=== PATIENT | female | born 2000 | race Caucasian/White ===

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

== ENCOUNTER 2018-07-24 12:28 | Emergency (ER) | payer OTHER ==
[2018-07-24 12:51] VITALS: RESP 18
[2018-07-24] MEDS ORDERED: SODIUM CHLORIDE 0.9% 1,000 ML IV ONE ×2 (13:10)
--- NOTE | 2018-07-24 13:11 | ED ---
Abdominal Pain HPI - General Chief Complaint: Abdominal Pain Stated Complaint: 6wks preg, cramping Time Seen by Provider: 07/24/18 12:52 Source: patient, RN notes reviewed, old records reviewed Mode of arrival: ambulatory Limitations: no limitations - History of Present Illness Initial Comments: Patient is a 18-year-old female presents emergency department today with chief complaint of lower abdominal cramping. She reports that she's had no bleeding. She is approximately 6 weeks . This is her fourth . Patient TRANSFER ENGINEER is Dr. Nolasco. Patient states that she's had no vaginal bleeding. She denies any abnormal discharge. She denies any dysuria hematuria. - Related Data Home Medications Medication Instructions Recorded Confirmed Pnv No.95/Ferrous Fum/Folic AC 1 tab PO DAILY 11/16/17 07/24/18 [ Multivitamin Tablet] Allergies Allergy/AdvReac Type Severity Reaction Status Date / Time No Known Allergies Allergy Verified 07/24/18 13:36 Review of Systems ROS Statement: Those systems with pertinent positive or pertinent negative responses have been documented in the HPI. ROS Other: All systems not noted in ROS Statement are negative. Past Medical History Past Medical History: No Reported History History of Any Multi-Drug Resistant Organisms: None Reported Past Surgical History: No Surgical Hx Reported Past Anesthesia/Blood Transfusion Reactions: No Reported Reaction Past Psychological History: Anxiety, Depression Smoking Status: Never smoker Past Alcohol Use History: None Reported Past Drug Use History: None Reported, Marijuana - Past Family History Father Family Medical History: No Reported History General Exam - General Exam Comments Initial Comments: 18-year-old female. Alert and oriented. No significant distress. Limitations: no limitations General appearance: alert, in no apparent distress Head exam: Present: atraumatic, normocephalic, normal inspection Eye exam: Present: normal appearance, PERRL, EOMI. Absent: scleral icterus, conjunctival injection, periorbital swelling ENT exam: Present: normal exam, mucous membranes moist Neck exam: Present: normal inspection. Absent: tenderness, meningismus, lymphadenopathy Respiratory exam: Present: normal lung sounds bilaterally. Absent: respiratory distress, wheezes, rales, rhonchi, stridor Cardiovascular Exam: Present: regular rate, normal rhythm, normal heart sounds. Absent: systolic murmur, diastolic murmur, rubs, gallop, clicks GI/Abdominal exam: Present: soft, normal bowel sounds. Absent: distended, tenderness, guarding, rebound, rigid Extremities exam: Present: normal inspection, full ROM, normal capillary refill. Absent: tenderness, pedal edema, joint swelling, calf tenderness Back exam: Present: normal inspection Neurological exam: Present: alert, oriented X3, CN II-XII intact Psychiatric exam: Present: normal affect, normal mood Skin exam: Present: warm, dry, intact, normal color. Absent: rash Course Vital Signs 07/24/18 07/24/18 07/24/18 12:50 13:02 13:05 Temperature 97.5 F L Pulse Rate 89 81 Respiratory 18 18 18 Rate Blood Pressure 93/62 114/71 114/71 O2 Sat by Pulse 99 90 L 100 Oximetry 07/24/18 07/24/18 07/24/18 13:30 14:00 14:30 Temperature Pulse Rate Respiratory 18 18 18 Rate Blood Pressure 114/71 108/69 100/59 O2 Sat by Pulse 100 99 Oximetry Medical Decision Making - Medical Decision Making This is 18-year-old female. Alert and oriented 3. Patient appears in no acute distress, she presents emergency room stay lower abdominal cramping in early . Patient wishes 6 weeks . ultrasound was IUP. HCG level 17,000. Pelvic exam completed 8 for any acute process. A Rh+ blood type. Patient at this time did have some discharge noted on vaginal exam. She will not wait for the results for Trichomonas or UA test. At this time. Discussed we will call if there is any positive results. Patient has been advised to have close follow-up with primary care physician. But there is no concern for ectopic at this time. Patient agrees to treatment plan will comply. Return parameters were discussed. - Lab Data Result diagrams: 07/24/18 13:37 07/24/18 13:37 Lab Results 07/24/18 07/24/18 07/24/18 Range/Units 13:37 13:37 13:37 WBC 10.1 (4.0-11.0) k/uL RBC 4.85 (3.80-5.40) m/uL Hgb 14.5 (11.4-16.0) gm/dL Hct 43.1 (34.0-46.0) % MCV 88.8 (80.0-100.0) fL MCH 30.0 (25.0-35.0) pg MCHC 33.8 (31.0-37.0) g/dL RDW 12.6 (11.5-15.5) % Plt Count 290 (150-450) k/uL Neutrophils % 68 % Lymphocytes % 24 % Monocytes % 4 % Eosinophils % 2 % Basophils % 1 % Neutrophils # 6.8 (1.3-7.7) k/uL Lymphocytes # 2.4 (1.0-4.8) k/uL Monocytes # 0.4 (0-1.0) k/uL Eosinophils # 0.2 (0-0.7) k/uL Basophils # 0.1 (0-0.2) k/uL Sodium 138 (137-145) mmol/L Potassium 4.0 (3.5-5.1) mmol/L Chloride 102 (98-107) mmol/L Carbon Dioxide 26 (22-30) mmol/L Anion Gap 10 mmol/L BUN 5 L (7-17) mg/dL Creatinine 0.57 (0.52-1.04) mg/dL Est GFR (CKD-EPI)AfAm >90 (>60 ml/min/1.73 sqM) Est GFR (CKD-EPI)NonAf >90 (>60 ml/min/1.73 sqM) Glucose 85 (74-99) mg/dL Calcium 9.2 (8.4-10.2) mg/dL Total Bilirubin 0.5 (0.2-1.3) mg/dL AST 26 (14-36) U/L ALT 30 (9-52) U/L Alkaline Phosphatase 56 (38-126) U/L Total Protein 7.7 (6.3-8.2) g/dL Albumin 4.2 (3.5-5.0) g/dL HCG, Quant 12676.3 mIU/mL Urine Color Urine Appearance (Clear) Urine pH (5.0-8.0) Ur Specific [place] (1.001-1.035) Urine Protein (Negative) Urine Glucose (UA) (Negative) Urine Ketones (Negative) Urine Blood (Negative) Urine Nitrite (Negative) Urine Bilirubin (Negative) Urine Urobilinogen (<2.0) mg/dL Ur Leukocyte Esterase (Negative) Urine RBC (0-5) /hpf Urine WBC (0-5) /hpf Ur Squamous Epith Cells (0-4) /hpf Urine Bacteria (None) /hpf Urine Mucus (None) /hpf Blood Type A Positive Blood Type Recheck No 07/24/18 Range/Units 13:38 WBC (4.0-11.0) k/uL RBC (3.80-5.40) m/uL Hgb (11.4-16.0) gm/dL Hct (34.0-46.0) % MCV (80.0-100.0) fL MCH (25.0-35.0) pg MCHC (31.0-37.0) g/dL RDW (11.5-15.5) % Plt Count (150-450) k/uL Neutrophils % % Lymphocytes % % Monocytes % % Eosinophils % % Basophils % % Neutrophils # (1.3-7.7) k/uL Lymphocytes # (1.0-4.8) k/uL Monocytes # (0-1.0) k/uL Eosinophils # (0-0.7) k/uL Basophils # (0-0.2) k/uL Sodium (137-145) mmol/L Potassium (3.5-5.1) mmol/L Chloride (98-107) mmol/L Carbon Dioxide (22-30) mmol/L Anion Gap mmol/L BUN (7-17) mg/dL Creatinine (0.52-1.04) mg/dL Est GFR (CKD-EPI)AfAm (>60 ml/min/1.73 sqM) Est GFR (CKD-EPI)NonAf (>60 ml/min/1.73 sqM) Glucose (74-99) mg/dL Calcium (8.4-10.2) mg/dL Total Bilirubin (0.2-1.3) mg/dL AST (14-36) U/L ALT (9-52) U/L Alkaline Phosphatase (38-126) U/L Total Protein (6.3-8.2) g/dL Albumin (3.5-5.0) g/dL HCG, Quant mIU/mL Urine Color Light Yellow Urine Appearance Cloudy H (Clear) Urine pH 7.0 (5.0-8.0) Ur Specific [place] 1.008 (1.001-1.035) Urine Protein Negative (Negative) Urine Glucose (UA) Negative (Negative) Urine Ketones Negative (Negative) Urine Blood Negative (Negative) Urine Nitrite Negative (Negative) Urine Bilirubin Negative (Negative) Urine Urobilinogen <2.0 (<2.0) mg/dL Ur Leukocyte Esterase Negative (Negative) Urine RBC <1 (0-5) /hpf Urine WBC 3 (0-5) /hpf Ur Squamous Epith Cells 7 H (0-4) /hpf Urine Bacteria Rare H (None) /hpf Urine Mucus Rare H (None) /hpf Blood Type Blood Type Recheck Disposition Clinical Impression: 6 weeks gestation of , Abdominal cramping affecting Disposition: HOME SELF-CARE Condition: Good Instructions: Abdominal Pain in (ED) Additional Instructions: Patient advised to a close follow-up with primary care physician. Return to emergency department if any alarming signs or symptoms occur. Is patient prescribed a controlled substance at d/c from ED?: No Referrals: Michael Molina MD [Primary Care Provider] - 1-2 days Time of Disposition: 15:23
[2018-07-24 14:09] LABS: Basophils # (A) 0.1 k/uL (0-0.2); Basophils % (A) 1 %; Eosinophils # (A) 0.2 k/uL (0-0.7); Eosinophils % (A) 2 %; HCT 43.1 % (34.0-46.0); HGB 14.5 gm/dL (11.4-16.0); Lymphocytes # (A) 2.4 k/uL (1.0-4.8); Lymphocytes % (A) 24 %; MCHC 33.8 g/dL (31.0-37.0); MCV 88.8 fL (80.0-100.0); Mean Platelet Volume 6.1; Monocytes # (A) 0.4 k/uL (0-1.0); Monocytes % (A) 4 %; Neutrophils # (A) 6.8 k/uL (1.3-7.7); Neutrophils % (A) 68 %; Platelet Count 290 k/uL (150-450); RBC 4.85 m/uL (3.80-5.40); RDW 12.6 % (11.5-15.5); WBC 10.1 k/uL (4.0-11.0)
[2018-07-24 14:16] LABS: ALT 30 U/L (9-52); AST 26 U/L (14-36); Albumin 4.2 g/dL (3.5-5.0); Alkaline Phosphatase 56 U/L (38-126); Anion Gap 10 mmol/L; Blood Urea Nitrogen 5 mg/dL (7-17); Calcium 9.2 mg/dL (8.4-10.2); Carbon Dioxide 26 mmol/L (22-30); Chloride 102 mmol/L (98-107); Glucose 85 mg/dL (74-99); Sodium 138 mmol/L (137-145); Total Bilirubin 0.5 mg/dL (0.2-1.3); Total Protein 7.7 g/dL (6.3-8.2)
--- NOTE | 2018-07-24 15:00 | US ---
EXAMINATION TYPE: Transabdominal DATE OF EXAM: 01/08/18 COMPARISON: NONE CLINICAL HISTORY: pain. cramping x 1 day EXAM PERFORMED: OBTA EXAM MEASUREMENTS: GESTATIONAL AGE / DATING Physician Established: Not yet established Dates by LMP: (6 weeks/1 days) EDC: 03/18/2019 Dates by First Scan: [employer] Dates by Current Scan for: (6 weeks/4 days) EDC: 03/15/2019 MATERNAL ANATOMY Uterus: 9.0 x 7.1 x 5.3cm Right Ovary: 2.5 x 2.5 x 1.6cm Left Ovary: 2.4 x 2.0 x 1.8cm Post CDS / Adnexa: wnl Presence of free fluid: no Presence of corpus luteal cyst: not seen Presence of subchorionic bleed: no GESTATION / SURVEY CRL: 0.7cm (6 weeks/4 days) MSD: wnl Yolk Sac (normal less than 6mm): 0.3 Heart Rate: 119 bpm Rhythm: Normal IUP: Viable IUP Date of LMP: 06/11/2018 Beta HcG (if available): pending Single live intrauterine gestation is identified as gestational sac, yolk sac, pole are present . No free fluid is seen in pelvic cul-de-sac. Both ovaries are seen, no concerning extraovarian adnexal lesion is present. IMPRESSION: Single live intrauterine gestation is documented, mean crown-rump length is 0.7 cm corresponding to 6 week 4 day old fetus.
[2018-07-24 15:01] LABS: HCG,Quantitative Serum 17295.3 mIU/mL
[2018-07-24 15:34] LABS: Appearance,Urine Cloudy (Clear); Bacteria,Urine Rare /hpf; Bilirubin,Urine Negative (Negative); Blood,Urine Negative (Negative); Color,Urine Light Yellow; Glucose,Urine (UA) Negative (Negative); Ketones,Urine Negative (Negative); Leukocyte Esterase,Urine Negative (Negative); Mucus,Urine Rare /hpf; Nitrite,Urine Negative (Negative); Protein,Urine Negative (Negative); RBC,Urine <1 /hpf (0-5); Specific Gravity,Urine 1.008 (1.001-1.035); Squamous Epithelial Cell,Urine 7 /hpf (0-4); Urobilinogen,Urine <2.0 mg/dL (<2.0); WBC,Urine 3 /hpf (0-5)
[2018-07-24 15:50] VITALS: BP 95/60; PULSE 80; TEMP 98.5
== END 2018-07-24 15:40 | disposition home or self-care (01) ==
LOC: EC 12:28
DX: O26.891 Other specified pregnancy related conditions, first trimester (principal); Z3A.01 Less than 8 weeks gestation of pregnancy
CPT/HCPCS: 36415; 76801; 80053; 81001; 84702; 85025; 86900; 86901; 87081; 87491; 87591; 87808; 96360; 96361; 99284

== ENCOUNTER 2018-09-16 13:15 | Emergency (ER) | payer OTHER ==
[2018-09-16 13:50] VITALS: BP 101/65; PULSE 69; RESP 16; TEMP 98.1
[2018-09-16] MEDS ORDERED: SODIUM CHLORIDE 0.9% 1,000 ML IV STA (15:42)
--- NOTE | 2018-09-16 15:48 | ED ---
General Adult HPI - General Chief complaint: Abdominal Pain Stated complaint: sharp pelvic pain, 14 weeks Time Seen by Provider: 09/16/18 15:13 Source: patient, RN notes reviewed Mode of arrival: ambulatory Limitations: no limitations - History of Present Illness Initial comments: 18-year-old female 14 weeks presents to the emergency department for a chief complaint of pelvic cramping. Patient states this has been ongoing for about 2 days. Patient states this is worse when sitting and better when standing. Patient denies any vaginal bleeding. Patient denies dysuria, fevers. She sees Dr. Camp for OB. Patient has no other complaints at this time including shortness of breath, chest pain, abdominal pain, nausea or vomiting, headache, or visual changes. - Related Data Home Medications Medication Instructions Recorded Confirmed Gummies 2 tab PO DAILY 09/16/18 09/16/18 Allergies Allergy/AdvReac Type Severity Reaction Status Date / Time No Known Allergies Allergy Verified 09/16/18 15:52 Review of Systems ROS Statement: Those systems with pertinent positive or pertinent negative responses have been documented in the HPI. ROS Other: All systems not noted in ROS Statement are negative. Past Medical History Past Medical History: No Reported History History of Any Multi-Drug Resistant Organisms: None Reported Past Surgical History: No Surgical Hx Reported Past Anesthesia/Blood Transfusion Reactions: No Reported Reaction Past Psychological History: Anxiety, Depression Smoking Status: Never smoker Past Alcohol Use History: None Reported Past Drug Use History: Marijuana - Past Family History Father Family Medical History: No Reported History General Exam Limitations: no limitations General appearance: alert, in no apparent distress Head exam: Present: atraumatic, normocephalic, normal inspection Eye exam: Present: normal appearance, PERRL, EOMI. Absent: scleral icterus, conjunctival injection, periorbital swelling ENT exam: Present: normal exam, mucous membranes moist Neck exam: Present: normal inspection, full ROM. Absent: tenderness, meningismus, lymphadenopathy Respiratory exam: Present: normal lung sounds bilaterally. Absent: respiratory distress, wheezes, rales, rhonchi, stridor Cardiovascular Exam: Present: regular rate, normal rhythm, normal heart sounds. Absent: systolic murmur, diastolic murmur, rubs, gallop, clicks GI/Abdominal exam: Present: soft, tenderness (The most suprapubic tenderness, no tenderness elsewhere in the abdomen), normal bowel sounds. Absent: distended , guarding, rebound, rigid External exam: Present: normal external exam. Absent: erythema, swelling, lesions, lacerations, ecchymosis Speculum exam: Present: normal speculum exam, vaginal discharge (Thin white discharge noted). Absent: erythema, cervical discharge, vaginal bleeding By manual exam: Present: uterine tenderness. Absent: normal by manual exam, cervical motion tenderness, adnexal tenderness, adnexal mass, uterine enlargement Psychiatric exam: Present: normal affect, normal mood Course Vital Signs 09/16/18 13:46 Temperature 98.1 F Pulse Rate 69 Respiratory 16 Rate Blood Pressure 101/65 O2 Sat by Pulse 98 Oximetry Medical Decision Making - Medical Decision Making 18-year-old female presents to the emergency department for pelvic cramping 2 days, no bleeding. Patient is 14 weeks . CBC and CMP unremarkable. White count slightly elevated at 11 pain 8, likely reactive. CMP unremarkable. HCG Quant 29,252. Urine does not show any evidence of infection, Trichomonas negative. Gonorrhea and chlamydia pending, although patient does not have any concerns for this. ultrasound shows no Getting process seen. Heart rate 162, IUP measuring 15 weeks. Patient again denies vaginal bleeding. At this time she will discharged home with follow-up to [facility] and return if she starts to have any vaginal bleeding. - Lab Data Result diagrams: 09/16/18 16:00 09/16/18 16:00 Lab Results 09/16/18 09/16/18 09/16/18 Range/Units 16:00 16:00 16:00 WBC 11.8 H (4.0-11.0) k/uL RBC 4.21 (3.80-5.40) m/uL Hgb 12.6 (11.4-16.0) gm/dL Hct 36.6 (34.0-46.0) % MCV 86.9 (80.0-100.0) fL MCH 29.8 (25.0-35.0) pg MCHC 34.3 (31.0-37.0) g/dL RDW 13.0 (11.5-15.5) % Plt Count 234 (150-450) k/uL Neutrophils % 66 % Lymphocytes % 27 % Monocytes % 4 % Eosinophils % 2 % Basophils % 0 % Neutrophils # 7.8 H (1.3-7.7) k/uL Lymphocytes # 3.2 (1.0-4.8) k/uL Monocytes # 0.4 (0-1.0) k/uL Eosinophils # 0.2 (0-0.7) k/uL Basophils # 0.0 (0-0.2) k/uL Sodium 137 (137-145) mmol/L Potassium 3.6 (3.5-5.1) mmol/L Chloride 105 (98-107) mmol/L Carbon Dioxide 24 (22-30) mmol/L Anion Gap 8 mmol/L BUN 4 L (7-17) mg/dL Creatinine 0.40 L (0.52-1.04) mg/dL Est GFR (CKD-EPI)AfAm >90 (>60 ml/min/1.73 sqM) Est GFR (CKD-EPI)NonAf >90 (>60 ml/min/1.73 sqM) Glucose 70 L (74-99) mg/dL Calcium 9.1 (8.4-10.2) mg/dL Total Bilirubin 0.3 (0.2-1.3) mg/dL AST 20 (14-36) U/L ALT 20 (9-52) U/L Alkaline Phosphatase 35 L (38-126) U/L Total Protein 7.2 (6.3-8.2) g/dL Albumin 3.9 (3.5-5.0) g/dL Amylase 56 (30-110) U/L Lipase 131 (23-300) U/L HCG, Quant 03025.0 mIU/mL Urine Color Yellow Urine Appearance Clear (Clear) Urine pH 7.0 (5.0-8.0) Ur Specific [place] 1.010 (1.001-1.035) Urine Protein Negative (Negative) Urine Glucose (UA) Negative (Negative) Urine Ketones Negative (Negative) Urine Blood Negative (Negative) Urine Nitrite Negative (Negative) Urine Bilirubin Negative (Negative) Urine Urobilinogen <2.0 (<2.0) mg/dL Ur Leukocyte Esterase Negative (Negative) Trichomonas Ag (Rapid) (Negative) 09/16/18 Range/Units 16:00 WBC (4.0-11.0) k/uL RBC (3.80-5.40) m/uL Hgb (11.4-16.0) gm/dL Hct (34.0-46.0) % MCV (80.0-100.0) fL MCH (25.0-35.0) pg MCHC (31.0-37.0) g/dL RDW (11.5-15.5) % Plt Count (150-450) k/uL Neutrophils % % Lymphocytes % % Monocytes % % Eosinophils % % Basophils % % Neutrophils # (1.3-7.7) k/uL Lymphocytes # (1.0-4.8) k/uL Monocytes # (0-1.0) k/uL Eosinophils # (0-0.7) k/uL Basophils # (0-0.2) k/uL Sodium (137-145) mmol/L Potassium (3.5-5.1) mmol/L Chloride (98-107) mmol/L Carbon Dioxide (22-30) mmol/L Anion Gap mmol/L BUN (7-17) mg/dL Creatinine (0.52-1.04) mg/dL Est GFR (CKD-EPI)AfAm (>60 ml/min/1.73 sqM) Est GFR (CKD-EPI)NonAf (>60 ml/min/1.73 sqM) Glucose (74-99) mg/dL Calcium (8.4-10.2) mg/dL Total Bilirubin (0.2-1.3) mg/dL AST (14-36) U/L ALT (9-52) U/L Alkaline Phosphatase (38-126) U/L Total Protein (6.3-8.2) g/dL Albumin (3.5-5.0) g/dL Amylase (30-110) U/L Lipase (23-300) U/L HCG, Quant mIU/mL Urine Color Urine Appearance (Clear) Urine pH (5.0-8.0) Ur Specific [place] (1.001-1.035) Urine Protein (Negative) Urine Glucose (UA) (Negative) Urine Ketones (Negative) Urine Blood (Negative) Urine Nitrite (Negative) Urine Bilirubin (Negative) Urine Urobilinogen (<2.0) mg/dL Ur Leukocyte Esterase (Negative) Trichomonas Ag (Rapid) Negative (Negative) Disposition Clinical Impression: Pelvic cramping, Intrauterine Disposition: HOME SELF-CARE Condition: Good Instructions: Abdominal Pain in (ED) Additional Instructions: Please follow up with [facility] in one to 2 days. Return to the emergency department if you have worsening symptoms. Is patient prescribed a controlled substance at d/c from ED?: No Referrals: Michael Molina MD [Primary Care Provider] - 1-2 days Terrence Moore MD [Family Provider] - 1-2 days Time of Disposition: 17:58
[2018-09-16 16:23] LABS: Appearance,Urine Clear (Clear); Basophils % (A) 0 %; Bilirubin,Urine Negative (Negative); Blood,Urine Negative (Negative); Color,Urine Yellow; Eosinophils # (A) 0.2 k/uL (0-0.7); Eosinophils % (A) 2 %; Glucose,Urine (UA) Negative (Negative); HCT 36.6 % (34.0-46.0); HGB 12.6 gm/dL (11.4-16.0); Ketones,Urine Negative (Negative); Leukocyte Esterase,Urine Negative (Negative); Lymphocytes # (A) 3.2 k/uL (1.0-4.8); Lymphocytes % (A) 27 %; MCH 29.8 pg (25.0-35.0); MCHC 34.3 g/dL (31.0-37.0); MCV 86.9 fL (80.0-100.0); Mean Platelet Volume 6.4; Monocytes # (A) 0.4 k/uL (0-1.0); Monocytes % (A) 4 %; Neutrophils # (A) 7.8 k/uL (1.3-7.7); Neutrophils % (A) 66 %; Nitrite,Urine Negative (Negative); Platelet Count 234 k/uL (150-450); Protein,Urine Negative (Negative); RBC 4.21 m/uL (3.80-5.40); Urobilinogen,Urine <2.0 mg/dL (<2.0); WBC 11.8 k/uL (4.0-11.0)
[2018-09-16 16:34] LABS: ALT 20 U/L (9-52); AST 20 U/L (14-36); Albumin 3.9 g/dL (3.5-5.0); Alkaline Phosphatase 35 U/L (38-126); Amylase 56 U/L (30-110); Anion Gap 8 mmol/L; Blood Urea Nitrogen 4 mg/dL (7-17); Calcium 9.1 mg/dL (8.4-10.2); Carbon Dioxide 24 mmol/L (22-30); Chloride 105 mmol/L (98-107); Glucose 70 mg/dL (74-99); Lipase 131 U/L (23-300); Potassium 3.6 mmol/L (3.5-5.1); Sodium 137 mmol/L (137-145); Total Bilirubin 0.3 mg/dL (0.2-1.3); Total Protein 7.2 g/dL (6.3-8.2)
--- NOTE | 2018-09-16 17:09 | US ---
EXAMINATION TYPE: US OB >= 14 wk fetus DATE OF EXAM: 09/16/2018 COMPARISON: CLINICAL HISTORY: PainCramping, no spotting, no surgeries TECHNIQUE: Transabdominal (TA) GESTATIONAL AGE / DATING Physician Established: (13 weeks/6 days) EDC: 03/18/2019 Dates by Current Scan: (15 weeks/2 days) EDC: 03/08/2019 SURVEY IUP: Single PLACENTA: Anterior PREVIA: No Previa ANNY: 10.6 cm Normal CERVICAL LENGTH (transabdominal: norm > 3.0cm): 3.8 cm BIOMETRY PRESENTATION: Transverse lie with head to maternal left BPD: 3.0 cm 15 weeks / 3 days HC: 10.8 cm 15 weeks / 1 days AC: 9.1 cm 15 weeks / 2 days FL: 1.3 cm 13 weeks / 6 days ESTIMATED WEIGHT IN GRAMS: 103.0 grams ESTIMATED WEIGHT IN LBS/OZ: 0 lbs. 4 oz. WEIGHT PERCENTAGE BASED ON ESTABLISHED DATES: 87.4% HC/AC: 1.2 Normal FL/AC: 14.5 HEART RATE: 162 bpm RHYTHM: Normal Single live IUP measuring 15 weeks 2 days IMPRESSION: no complicating process seen. There is satisfactory growth compared to 07/24/2018.
[2018-09-18 14:03] LABS: C. trachomatis,PCR Negative (Neg,Equiv); Chlamydia trachomatis Source Vagina
[2018-09-18 14:10] LABS: N. gonorrhoeae,PCR Negative (Neg,Equiv); Neisseria Source Vagina
== END 2018-09-16 18:15 | disposition home or self-care (01) ==
LOC: EC 13:15
DX: O99.89 Other specified diseases and conditions complicating pregnancy, childbirth and the puerperium (principal); R10.2 Pelvic and perineal pain; Z3A.14 14 weeks gestation of pregnancy
CPT/HCPCS: 36415; 76805; 80053; 81003; 82150; 83690; 84702; 85025; 87491; 87591; 87808; 96360; 99284

== ENCOUNTER 2018-09-30 20:24 | Emergency (ER) | payer OTHER ==
[2018-09-30] MEDS ORDERED: SODIUM CHLORIDE 0.9% 500 ML 500 ML IV ONE (21:31)
[2018-09-30 21:53] VITALS: RESP 16
[2018-09-30 22:22] LABS: Basophils % (A) 0 %; Eosinophils # (A) 0.2 k/uL (0-0.7); Eosinophils % (A) 2 %; HCT 36.4 % (34.0-46.0); HGB 12.2 gm/dL (11.4-16.0); Lymphocytes # (A) 3.3 k/uL (1.0-4.8); Lymphocytes % (A) 27 %; MCH 29.2 pg (25.0-35.0); MCHC 33.5 g/dL (31.0-37.0); MCV 87.1 fL (80.0-100.0); Mean Platelet Volume 6.2; Monocytes # (A) 0.5 k/uL (0-1.0); Monocytes % (A) 4 %; Neutrophils # (A) 7.9 k/uL (1.3-7.7); Neutrophils % (A) 65 %; Platelet Count 266 k/uL (150-450); RBC 4.17 m/uL (3.80-5.40); RDW 12.7 % (11.5-15.5); WBC 12.1 k/uL (4.0-11.0)
[2018-09-30 22:27] LABS: Amorphous Sediment,Urine Occasional /hpf; Appearance,Urine Cloudy (Clear); Bilirubin,Urine Negative (Negative); Blood,Urine Negative (Negative); Color,Urine Yellow; Glucose,Urine (UA) Negative (Negative); Ketones,Urine 1+ (Negative); Leukocyte Esterase,Urine Small (Negative); Mucus,Urine Few /hpf; Nitrite,Urine Negative (Negative); PH, Urine 6.5 (5.0-8.0); Protein,Urine Negative (Negative); RBC,Urine 2 /hpf (0-5); Specific Gravity,Urine 1.015 (1.001-1.035); Squamous Epithelial Cell,Urine 31 /hpf (0-4); Urobilinogen,Urine <2.0 mg/dL (<2.0); WBC,Urine 12 /hpf (0-5)
[2018-09-30 22:29] LABS: ALT 25 U/L (9-52); AST 26 U/L (14-36); Albumin 3.9 g/dL (3.5-5.0); Alkaline Phosphatase 40 U/L (38-126); Anion Gap 9 mmol/L; Blood Urea Nitrogen 10 mg/dL (7-17); Calcium 9.3 mg/dL (8.4-10.2); Carbon Dioxide 23 mmol/L (22-30); Chloride 105 mmol/L (98-107); Glucose 78 mg/dL (74-99); Sodium 137 mmol/L (137-145); Total Bilirubin 0.3 mg/dL (0.2-1.3); Total Protein 7.2 g/dL (6.3-8.2)
[2018-09-30 22:46] LABS: HCG,Quantitative Serum 14342.4 mIU/mL
--- NOTE | 2018-09-30 22:49 | US ---
EXAMINATION TYPE: US OB >= 14 wk fetus DATE OF EXAM: 09/30/2018 COMPARISON: US CLINICAL HISTORY: painbleeding and cramping TECHNIQUE: Transabdominal (TA) GESTATIONAL AGE / DATING Physician Established: (15 weeks/6 days) EDC: 03/18/2019 Dates by LMP: (15 weeks/6 days) EDC: 03/18/2019 Dates by First Scan: (16 weeks/3 days) EDC: 03/15/2019 Dates by Current Scan: (16 weeks/6 days) EDC: 03/11/2019 Beta HCG (if available): SURVEY IUP: Single PLACENTA: Anterior PREVIA: No Previa ANNY: 11.8 cm Normal CERVICAL LENGTH (transabdominal: norm > 3.0cm): 3.6 cm BIOMETRY PRESENTATION: Breech BPD: 3.6 cm 17 weeks / 0 days HC: 13.5 cm 17 weeks / 0 days AC: 11.3 cm 17 weeks / 1 days FL: 2.1 cm 16 weeks / 2 days ESTIMATED WEIGHT IN GRAMS: 168 grams ESTIMATED WEIGHT IN LBS/OZ: 0 lbs. 6 oz. WEIGHT PERCENTAGE BASED ON ESTABLISHED DATES: 93% HC/AC: 1.2 Normal FL/AC: 18.7 Normal HEART RATE: 165 bpm RHYTHM: Normal Growth according to dates, no abnormality noted. IMPRESSION: The ultrasound gestational age is 16 weeks and 6 days. No complicating process seen. There is satisfa ctory growth compared to 07/24/2018.
--- NOTE | 2018-09-30 23:36 | ED ---
General Adult HPI - General Source: patient, RN notes reviewed Mode of arrival: ambulatory Limitations: no limitations <Wilbur Vera - Last Filed: 10/01/18 03:55> <Addie Garcia P - Last Filed: 10/02/18 04:05> - General Chief complaint: Abdominal Pain Stated complaint: 16 wks Bleeding/cramping Time Seen by Provider: 09/30/18 20:36 - History of Present Illness Initial comments: 18 year old presents to the emergency department for vaginal bleeding and cramping. Patient states cramping started yesterday. She states bleeding started about 3 hours prior to arrival. Patient states this bleeding is spotting in nature. Patient states she has had a confirmed intrauterine . She follows with Dr. Camp. She recently saw Dr. Camp who stated that cramping could be due to round ligament pain. Patient denies any dysuria. She denies any bowel movements.Patient has no other complaints at this time including shortness of breath, chest pain, nausea or vomiting, headache, or visual changes. (Wilbur Vera) - Related Data Home Medications Medication Instructions Recorded Confirmed Gummies 2 tab PO DAILY 09/16/18 09/16/18 Allergies Allergy/AdvReac Type Severity Reaction Status Date / Time No Known Allergies Allergy Verified 09/30/18 20:32 Review of Systems ROS Other: All systems not noted in ROS Statement are negative. <Wilbur Vera - Last Filed: 10/01/18 03:55> ROS Other: All systems not noted in ROS Statement are negative. <Addie Garcia P - Last Filed: 10/02/18 04:05> ROS Statement: Those systems with pertinent positive or pertinent negative responses have been documented in the HPI. Past Medical History Past Medical History: No Reported History History of Any Multi-Drug Resistant Organisms: None Reported Past Surgical History: No Surgical Hx Reported Past Anesthesia/Blood Transfusion Reactions: No Reported Reaction Past Psychological History: Anxiety, Depression Smoking Status: Never smoker Past Alcohol Use History: None Reported Past Drug Use History: Marijuana - Past Family History Father Family Medical History: No Reported History <Wilbur Vera - Last Filed: 10/01/18 03:55> General Exam Limitations: no limitations General appearance: alert, in no apparent distress Head exam: Present: atraumatic, normocephalic, normal inspection Eye exam: Present: normal appearance, PERRL, EOMI. Absent: scleral icterus, conjunctival injection, periorbital swelling ENT exam: Present: normal exam, mucous membranes moist Neck exam: Present: normal inspection, full ROM. Absent: tenderness, meningismus, lymphadenopathy, thyromegaly Respiratory exam: Present: normal lung sounds bilaterally. Absent: respiratory distress, wheezes, rales, rhonchi, stridor Cardiovascular Exam: Present: regular rate, normal rhythm, normal heart sounds. Absent: systolic murmur, diastolic murmur, rubs, gallop, clicks GI/Abdominal exam: Present: soft, normal bowel sounds. Absent: distended, tenderness, guarding, rebound, rigid External exam: Present: normal external exam Speculum exam: Present: normal speculum exam. Absent: erythema, vaginal discharge, cervical discharge, vaginal bleeding (no vaginal bleeding noted), foreign body, tissue, laceration By manual exam: Present: adnexal tenderness (minimal left adnexal tenderness). Absent: cervical motion tenderness, adnexal mass, uterine enlargement, uterine tenderness Neurological exam: Present: alert, oriented X3, CN II-XII intact Psychiatric exam: Present: normal affect, normal mood <Wilbur Vera P - Last Filed: 10/01/18 03:55> Vital Signs 09/30/18 09/30/18 09/30/18 20:30 21:52 22:59 Temperature 98.2 F Pulse Rate 90 Respiratory 20 16 16 Rate Blood Pressure 105/59 O2 Sat by Pulse 98 Oximetry 09/30/18 23:37 Temperature 98.3 F Pulse Rate 82 Respiratory 16 Rate Blood Pressure 110/52 O2 Sat by Pulse 99 Oximetry Medical Decision Making - Lab Data Result diagrams: 09/30/18 21:45 09/30/18 21:45 <Wilbur Vera P - Last Filed: 10/01/18 03:55> - Lab Data Result diagrams: 09/30/18 21:45 09/30/18 21:45 <Addie Garcia P - Last Filed: 10/02/18 04:05> - Medical Decision Making 18-year-old female presents to the emergency department for a chief complaint of vaginal bleeding and cramping. Patient is a female that is currently 16 weeks . Bleeding has been ongoing for the past few hours. On exam no significant tenderness. Speculum exam reveals minimal left adnexal tenderness without any vaginal bleeding or significant discharge. About 15 days ago patient had a negative gonorrhea and chlamydia. CBC unremarkable, white blood cell count 12.1 likely reactive. Urine has many squamous epithelial cells, will be cultured. No dysuria at this time. A+ blood type noted, no need for RhoGAM. Ultrasound shows a gestational age of 16 weeks 6 days without any complicating process. Satisfactory growth compared to last exam. Heart rate 165. At this time patient will be diagnosed with threatened miscarriage. Patient will follow up with [facility]. She will return if she has any worsening symptoms. (Wilbur Vera) I was available for consultation in the emergency department. The history and physical exam were done by the midlevel provider. I was consulted for this patient's care. I reviewed the case with the midlevel provider and based on their presentation of the patient, I agree with the assessment, medical decision making and plan of care as documented. (Addie Garcia) - Lab Data Lab Results 09/30/18 09/30/18 09/30/18 Range/Units 21:45 21:45 21:45 WBC 12.1 H (4.0-11.0) k/uL RBC 4.17 (3.80-5.40) m/uL Hgb 12.2 (11.4-16.0) gm/dL Hct 36.4 (34.0-46.0) % MCV 87.1 (80.0-100.0) fL MCH 29.2 (25.0-35.0) pg MCHC 33.5 (31.0-37.0) g/dL RDW 12.7 (11.5-15.5) % Plt Count 266 (150-450) k/uL Neutrophils % 65 % Lymphocytes % 27 % Monocytes % 4 % Eosinophils % 2 % Basophils % 0 % Neutrophils # 7.9 H (1.3-7.7) k/uL Lymphocytes # 3.3 (1.0-4.8) k/uL Monocytes # 0.5 (0-1.0) k/uL Eosinophils # 0.2 (0-0.7) k/uL Basophils # 0.0 (0-0.2) k/uL Sodium 137 (137-145) mmol/L Potassium 4.0 (3.5-5.1) mmol/L Chloride 105 (98-107) mmol/L Carbon Dioxide 23 (22-30) mmol/L Anion Gap 9 mmol/L BUN 10 (7-17) mg/dL Creatinine 0.41 L (0.52-1.04) mg/dL Est GFR (CKD-EPI)AfAm >90 (>60 ml/min/1.73 sqM) Est GFR (CKD-EPI)NonAf >90 (>60 ml/min/1.73 sqM) Glucose 78 (74-99) mg/dL Calcium 9.3 (8.4-10.2) mg/dL Total Bilirubin 0.3 (0.2-1.3) mg/dL AST 26 (14-36) U/L ALT 25 (9-52) U/L Alkaline Phosphatase 40 (38-126) U/L Total Protein 7.2 (6.3-8.2) g/dL Albumin 3.9 (3.5-5.0) g/dL HCG, Quant 00454.4 mIU/mL Urine Color Urine Appearance (Clear) Urine pH (5.0-8.0) Ur Specific [place] (1.001-1.035) Urine Protein (Negative) Urine Glucose (UA) (Negative) Urine Ketones (Negative) Urine Blood (Negative) Urine Nitrite (Negative) Urine Bilirubin (Negative) Urine Urobilinogen (<2.0) mg/dL Ur Leukocyte Esterase (Negative) Urine RBC (0-5) /hpf Urine WBC (0-5) /hpf Ur Squamous Epith Cells (0-4) /hpf Amorphous Sediment (None) /hpf Urine Mucus (None) /hpf Blood Type A Positive Blood Type Recheck No 09/30/18 Range/Units 21:45 WBC (4.0-11.0) k/uL RBC (3.80-5.40) m/uL Hgb (11.4-16.0) gm/dL Hct (34.0-46.0) % MCV (80.0-100.0) fL MCH (25.0-35.0) pg MCHC (31.0-37.0) g/dL RDW (11.5-15.5) % Plt Count (150-450) k/uL Neutrophils % % Lymphocytes % % Monocytes % % Eosinophils % % Basophils % % Neutrophils # (1.3-7.7) k/uL Lymphocytes # (1.0-4.8) k/uL Monocytes # (0-1.0) k/uL Eosinophils # (0-0.7) k/uL Basophils # (0-0.2) k/uL Sodium (137-145) mmol/L Potassium (3.5-5.1) mmol/L Chloride (98-107) mmol/L Carbon Dioxide (22-30) mmol/L Anion Gap mmol/L BUN (7-17) mg/dL Creatinine (0.52-1.04) mg/dL Est GFR (CKD-EPI)AfAm (>60 ml/min/1.73 sqM) Est GFR (CKD-EPI)NonAf (>60 ml/min/1.73 sqM) Glucose (74-99) mg/dL Calcium (8.4-10.2) mg/dL Total Bilirubin (0.2-1.3) mg/dL AST (14-36) U/L ALT (9-52) U/L Alkaline Phosphatase (38-126) U/L Total Protein (6.3-8.2) g/dL Albumin (3.5-5.0) g/dL HCG, Quant mIU/mL Urine Color Yellow Urine Appearance Cloudy H (Clear) Urine pH 6.5 (5.0-8.0) Ur Specific [place] 1.015 (1.001-1.035) Urine Protein Negative (Negative) Urine Glucose (UA) Negative (Negative) Urine Ketones 1+ H (Negative) Urine Blood Negative (Negative) Urine Nitrite Negative (Negative) Urine Bilirubin Negative (Negative) Urine Urobilinogen <2.0 (<2.0) mg/dL Ur Leukocyte Esterase Small H (Negative) Urine RBC 2 (0-5) /hpf Urine WBC 12 H (0-5) /hpf Ur Squamous Epith Cells 31 H (0-4) /hpf Amorphous Sediment Occasional H (None) /hpf Urine Mucus Few H (None) /hpf Blood Type Blood Type Recheck Disposition Is patient prescribed a controlled substance at d/c from ED?: No Time of Disposition: 23:34 <Wilbur Vera P - Last Filed: 12/25/18 03:55> <Addie Garcia P - Last Filed: 10/02/18 04:05> Clinical Impression: Threatened miscarriage, Vaginal bleeding during Disposition: HOME SELF-CARE Condition: Good Instructions: Threatened Miscarriage (ED) Additional Instructions: Please follow up with [facility] in 1-2 days. Please return to the emergency department if you have any worsening symptoms. Referrals: Michael Molina MD [Primary Care Provider] - 1-2 days Terrence Moore MD [STAFF PHYSICIAN] - 1-2 days
[2018-09-30 23:38] VITALS: BP 110/52; PULSE 82; TEMP 98.3
[2018-10-03 13:44] LABS: C. trachomatis,PCR Negative (Neg,Equiv); Chlamydia trachomatis Source Urine
== END 2018-09-30 23:40 | disposition home or self-care (01) ==
LOC: EC 20:24
DX: O20.0 Threatened abortion (principal); Z3A.16 16 weeks gestation of pregnancy
CPT/HCPCS: 36415; 76805; 80053; 81001; 84702; 85025; 86900; 86901; 87086; 87491; 96360; 99284

== ENCOUNTER 2019-01-06 17:58 | Outpatient (CLI) | payer OTHER ==
[2019-01-06 18:46] VITALS: BP 124/66; PULSE 85; RESP 16; TEMP 98.4
[2019-01-06 19:09] LABS: Amorphous Sediment,Urine Occasional /hpf; Appearance,Urine Cloudy (Clear); Bilirubin,Urine Negative (Negative); Blood,Urine Negative (Negative); Color,Urine Yellow; Glucose,Urine (UA) Negative (Negative); Ketones,Urine Negative (Negative); Leukocyte Esterase,Urine Negative (Negative); Mucus,Urine Occasional /hpf; Nitrite,Urine Negative (Negative); PH, Urine 6.5 (5.0-8.0); Protein,Urine Negative (Negative); Specific Gravity,Urine 1.019 (1.001-1.035); Squamous Epithelial Cell,Urine 5 /hpf (0-4); Urobilinogen,Urine <2.0 mg/dL (<2.0); WBC,Urine 1 /hpf (0-5)
[2019-01-06] MEDS ORDERED: BETAMET ACET-BETAMETH SOD PHOS 6 MG/ML VIAL IM SCH (20:15)
[2019-01-06] MEDS ORDERED: LACTATED RINGERS 1,000 ML IV SCH (20:30)
--- NOTE | 2019-02-03 09:15 | P.MSEPDOC ---
Presenting Problems - Arrival Data Date of Arrival on Unit: 01/06/19 Time of Arrival on Unit: 17:58 Mode of Transport: Ambulatory - Complaint OB-Reason for Admission/Chief Complaint: Possible Onset of Labor Medical History - Information : 2 Para: 1 Term: 1 : 0 Abortions: Spontaneous or Elective: 0 Number of Living Children: 1 - Gestational Age Gestational Age by TREY (wks/days): 30 Weeks and 3 Days Review of Systems - Review of Systems Constitutional: No problems Breast: No problems ENT: No problems Cardiovascular: No problems Respiratory: No problems Gastrointestinal: No problems Genitourinary: No problems Musculoskeletal: No problems Neurological: No problems Skin: No problems Comment: hx of labor with last preg but delivered at 38 weeks gestation Vital Signs - Temperature Temperature: 98.4 F Temperature Source: Temporal Artery Scan - Pulse Right Radial Pulse Rate: 85 Pulse Assessment Method: Automatic Cuff - Respirations Respiratory Rate: 16 Oxygen Delivery Method: Room Air O2 Sat by Pulse Oximetry: 98 - Blood Pressure Right Arm Blood Pressure: 124/66 Blood Pressure Mean: 85 Blood Pressure Source: Automatic Cuff Medical Screen Scoring (Pre) - Cervical Exam Dilation: 0 cm = 0 Effacement: Exam Deferred Membranes: Intact - Uterine Contractions Frequency: < 36 weeks = 6 Duration: N/A Intensity: N/A - Maternal Vital Signs Maternal Temperature: N/A Maternal Blood Pressure: N/A Signs of Preeclampsia: N/A Maternal Respirations: N/A - Pain Assessment Pain Location and Character: Lower, Abdomen Pain Scale Used: Numeric (1 - 10) Pain Intensity: 8 Pain Description: Cramping Pain Frequency: Intermittent Pain Duration: 30 Pain Duration Units: Minutes Pain Behavior: Vocalization Pain Aggravating Factors: Activity, Walking - Maternal Trauma Maternal Trauma: N/A - Assessment Baseline FHR: 140 Heart Rate - NICHD Category: Category I (Normal) = 0 NST: Reactive Position: N/A Station: N/A - Total Score Total Score (Pre): 6 - Level of Risk Level of Risk: Medium (6-9) Physician Notification (Pre) - Physician Notified Physician Notified Date: 01/06/19 Physician Notified Time: 19:00 Physician/Practitioner Notifed:: nicholas Spoke With: nicholas New Order Received: Yes Medical Screen Scoring (Post) - Cervical Exam Membranes: Intact - Uterine Contractions Frequency: > 5 minutes apart = 1 Duration: > 40 seconds = 2 - Maternal Vital Signs Maternal Temperature: N/A Maternal Blood Pressure: N/A Signs of Preeclampsia: N/A Maternal Respirations: N/A - Assessment Heart Rate: 135 Heart Rate - NICHD Category: Category I (Normal) = 0 NST: Reactive - Total Score Total Score (Post): 3 - Post Treatment Level of Risk Post Treatment Level of Risk: Low (0-5) Physician Notification (Post) - Physician Notified Physician Notified Date: 01/06/19 Physician Notified Time: 21:10 Physician/Practitioner Notified:: Dr Gordon New Order Received: Yes - Notification Comment Comment: d/c home follow-up with Dr Moore within a week Disposition - Disposition OB Disposition: Physician follow up in office, Discharge to home, Written follow up instructions reviewed Discharge Date: 01/06/19 Discharge Time: 21:25 I agree with the RN Medical Screening Exam: Yes Risk & Benefit of care provided described in d/c instruction: Yes Diagnosis: FALSE LABOR BEFORE 37 COMPLETED WEEKS OF GEST, THIRD TRI
== END 2019-01-06 21:25 | disposition home or self-care (01) ==
LOC: FBPOP 17:58
PROVIDERS: ATTEND Obstetrics & Gynecology
DX: O47.03 False labor before 37 completed weeks of gestation, third trimester (principal); Z3A.30 30 weeks gestation of pregnancy
CPT/HCPCS: 59025; 96360; 96372; 82731; 81001; G0463; J0702; 99214

== ENCOUNTER 2019-01-07 19:53 | Outpatient (CLI) | payer OTHER ==
[2019-01-07] MEDS ORDERED: BETAMET ACET-BETAMETH SOD PHOS 6 MG/ML VIAL IM SCH (20:15)
[2019-01-07 20:29] VITALS: BP 108/69; PULSE 96; RESP 16; TEMP 97.3
--- NOTE | 2019-01-28 09:37 | P.MSEPDOC ---
Presenting Problems - Arrival Data Date of Arrival on Unit: 01/07/19 Time of Arrival on Unit: 19:53 Mode of Transport: Ambulatory - Complaint OB-Reason for Admission/Chief Complaint: Other Comment: second celestone injection Medical History - Information : 2 Para: 1 Term: 1 : 0 Abortions: Spontaneous or Elective: 0 Number of Living Children: 1 - Gestational Age Gestational Age by TREY (wks/days): 30 Weeks and 4 Days Review of Systems - Review of Systems Constitutional: No problems Breast: No problems ENT: No problems Cardiovascular: No problems Respiratory: No problems Gastrointestinal: No problems Genitourinary: No problems Musculoskeletal: No problems Neurological: No problems Skin: No problems Vital Signs - Temperature Temperature: 97.3 F Temperature Source: Temporal Artery Scan - Pulse Right Sitting Pulse Rate: 96 Pulse Assessment Method: Automatic Cuff - Respirations Respiratory Rate: 16 Oxygen Delivery Method: Room Air - Blood Pressure Right Arm Blood Pressure: 108/69 Blood Pressure Mean: 82 Blood Pressure Source: Automatic Cuff Medical Screen Scoring (Pre) - Pain Assessment Pain Scale Used: Numeric (1 - 10) Pain Intensity: 0 - Level of Risk Level of Risk: N/A Physician Notification (Pre) - Physician Notified Physician Notified Date: 01/07/19 Physician Notified Time: 20:00 Physician/Practitioner Notifed:: David New Order Received: Yes (D/C home) - Notification Comment Comment: pt not on monitor, no complaints of contractions or any other complaints, positive movement Disposition - Disposition OB Disposition: Discharge to home Discharge Date: 01/07/19 Discharge Time: 20:14 I agree with the RN Medical Screening Exam: No Physician's MSE Comment: Incomplete documentation Risk & Benefit of care provided described in d/c instruction: No Diagnosis: OTHER SPECIFIED COMPLICATIONS OF LABOR AND DELIVERY
== END 2019-01-07 20:14 | disposition home or self-care (01) ==
LOC: FBPOP 19:53
PROVIDERS: ATTEND Obstetrics & Gynecology
DX: O75.89 Other specified complications of labor and delivery (principal); Z3A.30 30 weeks gestation of pregnancy
CPT/HCPCS: 96372; G0463; J0702; 99213

== ENCOUNTER 2019-01-16 13:11 | Outpatient (CLI) | payer OTHER ==
[2019-01-16 14:03] VITALS: BP 124/81; PULSE 96; RESP 16; TEMP 98.3
--- NOTE | 2019-01-31 09:53 | P.MSEPDOC ---
Presenting Problems - Arrival Data Date of Arrival on Unit: 01/16/19 Time of Arrival on Unit: 13:45 Mode of Transport: Ambulatory - Complaint OB-Reason for Admission/Chief Complaint: Possible Onset of Labor Comment: lost pinkish mucus plug Medical History - Information : 2 Para: 1 Term: 1 : 0 Abortions: Spontaneous or Elective: 0 Number of Living Children: 1 - Gestational Age Gestational Age by TREY (wks/days): 31 Weeks and 6 Days Review of Systems - Review of Systems Constitutional: No problems Breast: No problems ENT: No problems Cardiovascular: No problems Respiratory: No problems Gastrointestinal: No problems Genitourinary: No problems Musculoskeletal: No problems Neurological: No problems Skin: No problems Vital Signs - Temperature Temperature: 98.3 F Temperature Source: Temporal Artery Scan - Pulse Right Radial Pulse Rate: 96 Pulse Assessment Method: Automatic Cuff - Respirations Respiratory Rate: 16 Oxygen Delivery Method: Room Air - Blood Pressure Right Arm Blood Pressure: 124/81 Blood Pressure Mean: 95 Medical Screen Scoring (Pre) - Uterine Contractions Frequency: N/A Duration: N/A Intensity: N/A - Maternal Vital Signs Maternal Temperature: N/A Maternal Blood Pressure: N/A Signs of Preeclampsia: N/A Maternal Respirations: N/A - Pain Assessment Pain Location and Character: Back Pain Scale Used: Numeric (1 - 10) Pain Intensity: 3 Pain Description: Aching, Cramping Pain Frequency: Intermittent Pain Behavior: Vocalization - Maternal Trauma Maternal Trauma: N/A - Assessment Heart Rate - NICHD Category: Category I (Normal) = 0 NST: Reactive Position: N/A - Total Score Total Score (Pre): 0 - Level of Risk Level of Risk: Low (0-5) Physician Notification (Pre) - Physician Notified Physician Notified Date: 01/16/19 Physician Notified Time: 14:02 Physician/Practitioner Notifed:: ramakrishna Spoke With: ramakrishna - Notification Comment Comment: dr here. shadi sung. orders given Disposition - Disposition OB Disposition: Discharge to home, Written follow up instructions reviewed Discharge Date: 01/16/19 Discharge Time: 14:45 I agree with the RN Medical Screening Exam: Yes Risk & Benefit of care provided described in d/c instruction: Yes Diagnosis: FALSE LABOR BEFORE 37 COMPLETED WEEKS OF GEST, THIRD TRI
== END 2019-01-16 14:45 | disposition home or self-care (01) ==
LOC: FBPOP 13:11
PROVIDERS: ATTEND Obstetrics & Gynecology
DX: O47.03 False labor before 37 completed weeks of gestation, third trimester (principal); Z3A.31 31 weeks gestation of pregnancy
CPT/HCPCS: 59025; G0463; 99213

== ENCOUNTER 2019-02-13 20:08 | Outpatient (CLI) | payer OTHER ==
[2019-02-13 21:45] VITALS: BP 118/70; PULSE 86; RESP 14; TEMP 97
--- NOTE | 2019-03-17 12:27 | P.MSEPDOC ---
Presenting Problems - Arrival Data Date of Arrival on Unit: 02/13/19 Time of Arrival on Unit: 20:09 Mode of Transport: Ambulatory - Complaint OB-Reason for Admission/Chief Complaint: Rule Out SROM Medical History - Information : 2 Para: 1 Term: 1 : 0 Abortions: Spontaneous or Elective: 0 Number of Living Children: 1 - Gestational Age Gestational Age by TREY (wks/days): 35 Weeks and 6 Days Review of Systems - Review of Systems Constitutional: No problems Breast: No problems ENT: No problems Cardiovascular: No problems Respiratory: No problems Gastrointestinal: No problems Genitourinary: No problems Musculoskeletal: No problems Neurological: No problems Skin: No problems Vital Signs - Temperature Temperature: 97.0 F Temperature Source: Tympanic - Pulse Right Brachial Pulse Rate: 86 Pulse Assessment Method: Automatic Cuff - Respirations Respiratory Rate: 14 Oxygen Delivery Method: Room Air - Blood Pressure Right Arm Blood Pressure: 118/70 Blood Pressure Mean: 86 Blood Pressure Source: Automatic Cuff Medical Screen Scoring (Pre) - Cervical Exam Dilation: 0 cm = 0 Membranes: Intact - Uterine Contractions Frequency: > 5 minutes apart = 1 Duration: N/A Intensity: N/A - Maternal Vital Signs Maternal Temperature: N/A Maternal Blood Pressure: N/A Signs of Preeclampsia: N/A Maternal Respirations: N/A - Maternal Trauma Maternal Trauma: N/A - Assessment - Baby A Baseline FHR: 125 Heart Rate - NICHD Category: Category I (Normal) = 0 NST: Reactive Position: N/A Station: N/A - Total Score - Baby A Total Score - Baby A: 1 - Level of Risk - Baby A Level of Risk - Baby A: Low (0-5) - Pain Assessment Pain Location and Character: Abdomen Pain Scale Used: Numeric (1 - 10) Pain Intensity: 8 Pain Management Goal: 2 Pain Description: *Acute Pain Radiation Location: na Pain Frequency: Intermittent Pain Duration: 1 Pain Duration Units: Minutes Pain Behavior: Vocalization Pain Aggravating Factors: None Non-Pharmacological Interventions: Position/Reposition, Reduce Environmental Stimuli, Relaxation Technique Physician Notification (Pre) - Physician Notified Physician Notified Date: 02/13/19 Physician Notified Time: 21:28 Physician/Practitioner Notifed:: Dr. Duncan Spoke With: Dr. Duncan New Order Received: Yes - Notification Comment Comment: d/c home Disposition - Disposition OB Disposition: Discharge to home Discharge Date: 02/13/19 Discharge Time: 21:30 I agree with the RN Medical Screening Exam: Yes Risk & Benefit of care provided described in d/c instruction: Yes Diagnosis: FALSE LABOR BEFORE 37 COMPLETED WEEKS OF GEST, THIRD TRI
== END 2019-02-13 21:30 | disposition home or self-care (01) ==
LOC: FBPOP 20:08
PROVIDERS: ATTEND Obstetrics & Gynecology Obstetrics
DX: O47.03 False labor before 37 completed weeks of gestation, third trimester (principal); Z3A.25 25 weeks gestation of pregnancy
CPT/HCPCS: 59025; 84112; G0463; 99213

== ENCOUNTER 2019-02-17 17:46 | Outpatient (CLI) | payer OTHER ==
[2019-02-17 19:41] VITALS: BP 115/68; PULSE 86; RESP 18; TEMP 98.3
--- NOTE | 2019-03-07 10:17 | P.MSEPDOC ---
Presenting Problems - Arrival Data Date of Arrival on Unit: 02/17/19 Time of Arrival on Unit: 18:00 Mode of Transport: Ambulatory - Complaint OB-Reason for Admission/Chief Complaint: Possible Onset of Labor Medical History - Information : 2 Para: 1 Term: 1 : 0 Abortions: Spontaneous or Elective: 0 Number of Living Children: 1 - Gestational Age Gestational Age by TREY (wks/days): 36 Weeks and 3 Days Review of Systems - Review of Systems Constitutional: No problems Breast: No problems ENT: No problems Cardiovascular: No problems Respiratory: No problems Gastrointestinal: No problems Genitourinary: No problems Musculoskeletal: No problems Neurological: No problems Skin: No problems Vital Signs - Temperature Temperature: 98.3 F Temperature Source: Oral - Pulse Right Brachial Pulse Rate: 86 - Respirations Respiratory Rate: 18 Oxygen Delivery Method: Room Air Oxygen Flow Rate: 99 - Blood Pressure Right Arm Blood Pressure: 115/68 Blood Pressure Mean: 83 Blood Pressure Source: Automatic Cuff Medical Screen Scoring (Pre) - Cervical Exam Dilation: 0 cm = 0 Membranes: Intact - Uterine Contractions Frequency: N/A Duration: N/A Intensity: N/A - Maternal Vital Signs Maternal Temperature: N/A Maternal Blood Pressure: N/A Signs of Preeclampsia: N/A Maternal Respirations: N/A - Pain Assessment Pain Scale Used: Numeric (1 - 10) Pain Intensity: 8 Pain Description: *Acute Pain Frequency: Intermittent Pain Duration: 4 Pain Duration Units: Days Pain Behavior: Teary Eyed, Upset, Vocalization Pain Aggravating Factors: Activity, Contractions Non-Pharmacological Interventions: Position/Reposition - Maternal Trauma Maternal Trauma: N/A - Assessment Baseline FHR: 130 Heart Rate - NICHD Category: Category I (Normal) = 0 NST: Reactive Position: N/A Station: N/A - Total Score Total Score (Pre): 0 - Level of Risk Level of Risk: Low (0-5) Physician Notification (Pre) - Physician Notified Physician Notified Date: 02/17/19 Physician Notified Time: 18:30 Spoke With: ramakrishna Florez Order Received: Yes - Notification Comment Comment: discharge home. Disposition - Disposition OB Disposition: Discharge to home Discharge Date: 02/17/19 Discharge Time: 18:45 I agree with the RN Medical Screening Exam: Yes Risk & Benefit of care provided described in d/c instruction: Yes Diagnosis: FALSE LABOR BEFORE 37 COMPLETED WEEKS OF GEST, THIRD TRI
== END 2019-02-17 18:45 | disposition home or self-care (01) ==
LOC: FBPOP 17:46
PROVIDERS: ATTEND Obstetrics & Gynecology
DX: O47.03 False labor before 37 completed weeks of gestation, third trimester (principal); Z3A.36 36 weeks gestation of pregnancy
CPT/HCPCS: 59025; G0463; 99213

== ENCOUNTER 2019-03-11 19:20 | Inpatient (IN) | payer OTHER ==
[2019-03-11 20:02] VITALS: RESP 16
[2019-03-11] MEDS ORDERED: METHYLERGONOVINE 0.2 MG/ML 1 ML AMP IM PRN (21:43)
[2019-03-11] MEDS ORDERED: LIDOCAINE 0.5% (PF) 5 MG/ML (50 ML SDV) SQ PRN (21:43)
[2019-03-11] MEDS ORDERED: TERBUTALINE 1 MG/ML VIAL SQ PRN (21:43)
[2019-03-11] MEDS ORDERED: LIDOCAINE 1% 20 ML VIAL (10MG/ML) FOR IV START INTRADERMA PRN (21:43)
[2019-03-11] MEDS ORDERED: OXYTOCIN 10 UNIT/ML 1 ML VIAL IM PRN (21:43)
[2019-03-11] MEDS ORDERED: CARBOPROST TROMETHAMINE 250 MCG/ML 1 ML AMP IM PRN (21:43)
[2019-03-11] MEDS ORDERED: LACTATED RINGERS 1,000 ML IV SCH (21:45)
--- NOTE | 2019-03-11 21:50 | P.HPOB ---
History of Present Illness H&P Date: 03/11/19 Chief Complaint: Contractions This is a 18-year-old 3 para 1011 woman with an estimated due date of 03/18/2019 based on LMP consistent with a second trimester ultrasound. She presents to labor and delivery triage with worsening contractions. She has had an uncomplicated . Upon evaluation she was found to dilate her cervix from 2 cm 3+ centimeters during observation with consistent regular uterine contractions. She denies leakage of fluid or vaginal bleeding. Obstetric history: Normal spontaneous vaginal delivery 2015 at 38 weeks of a 6 lbs. 5 oz. male infant. She had a spontaneous miscarriage in November 2017 no D&C. Laboratory data: Group B strep negative. Blood type A+, antibody screen negative, rubella immune, VDRL nonreactive, hepatitis B surface antigen negative, HIV negative, gonorrhea and clinic cultures negative, glucose toleran ce testing within normal limits. Review of Systems All systems: negative Past Medical History Past Medical History: No Reported History History of Any Multi-Drug Resistant Organisms: None Reported Past Surgical History: No Surgical Hx Reported Past Anesthesia/Blood Transfusion Reactions: No Reported Reaction Smoking Status: Never smoker - Past Family History Father Family Medical History: No Reported History Medications and Allergies Home Medications Medication Instructions Recorded Confirmed Type Pnv No.95/Ferrous Fum/Folic AC 2 tab PO DAILY 01/16/19 03/11/19 History [ Multivitamin Tablet] Allergies Allergy/AdvReac Type Severity Reaction Status Date / Time No Known Allergies Allergy Verified 02/13/19 20:16 Exam Vital Signs Temp Pulse Resp BP 03/11/19 19:30 97.2 F L 93 16 109/70 Intake and Output 03/11/19 03/11/19 03/11/19 06:59 14:59 22:59 Other: Weight 68.039 kg Targeted physical exam is performed. This is a visibly gravid, female with multiple piercings. HEENT exam is remarkable for piercings. Lungs are clear and breathing is unlabored. Heart is a regular rate and rhythm. The abdomen is gravid with size equal to gestational age. Pelvic examination per labor and event technician is 3 cm dilated, 70% effaced and vertex in the -2 station. Intact membranes. On external monitoring the has a reassuring heart tones and she is [place] every 2-5 minutes spontaneously. Assessment and Plan (1) 39 weeks gestation of Current Visit: Yes Status: Acute Code(s): Z3A.39 - 39 WEEKS GESTATION OF SNOMED Code(s): 54447029 (2) Spontaneous onset of labor Current Visit: No Status: Acute Code(s): UUS7683 - SNOMED Code(s): 16685029 Plan: This is a 18-year-old 3 para 1011 woman who is admitted at 39 weeks gestation in spontaneous active labor. All signs are reassuring. status is reassuring by external monitoring. She is group B strep negative and Rh+. She may receive Stadol and/or an epidural anesthetic upon request in active labor.
[2019-03-11 22:09] VITALS: BMI 27.4
[2019-03-11] MEDS: BUTORPHANOL 1 MG/ML 1 ML VIAL IV PRN (22:20)
[2019-03-11] MEDS: LACTATED RINGERS 1,000 ML IV SCH (22:21)
[2019-03-11 22:57] LABS: Basophils % (A) 0 %; Eosinophils # (A) 0.2 k/uL (0-0.7); Eosinophils % (A) 2 %; HCT 37.4 % (34.0-46.0); HGB 12.6 gm/dL (11.4-16.0); Lymphocytes # (A) 2.9 k/uL (1.0-4.8); Lymphocytes % (A) 24 %; MCH 29.2 pg (25.0-35.0); MCHC 33.8 g/dL (31.0-37.0); MCV 86.2 fL (80.0-100.0); Mean Platelet Volume 7.1; Monocytes # (A) 0.5 k/uL (0-1.0); Monocytes % (A) 4 %; Neutrophils # (A) 8.2 k/uL (1.3-7.7); Neutrophils % (A) 68 %; Platelet Count 227 k/uL (150-450); RBC 4.33 m/uL (3.80-5.40); RDW 14.5 % (11.5-15.5)
[2019-03-12] MEDS: BUTORPHANOL 1 MG/ML 1 ML VIAL IV PRN (01:21)
[2019-03-12] MEDS: LACTATED RINGERS 1,000 ML IV SCH ×4 (05:23→15:01)
[2019-03-12] MEDS ORDERED: OXYTOCIN 30 UNITS/500 ML NS 30 UNIT in SALINE 1 500ML.BAG IV SCH (07:15)
[2019-03-12] MEDS ORDERED: SODIUM CHLORIDE 0.9% 100 ML BAG ONE (11:19)
[2019-03-12] MEDS ORDERED: fentaNYL (PF) 50 MCG/ML 5 ML AMP ONE (11:19)
[2019-03-12] MEDS ORDERED: ROPIVACAINE 5MG/ML 20ML VIAL ONE (11:19)
[2019-03-12] MEDS ORDERED: WITCH HAZEL 1 EACH MED..PAD TOPICAL PRN (14:53)
[2019-03-12] MEDS ORDERED: HYDROcodone/APAP 5-325MG 1 EACH TAB PO PRN (14:53)
[2019-03-12] MEDS ORDERED: ZOLPIDEM 5 MG TAB PO PRN (14:53)
[2019-03-12] MEDS ORDERED: diphenhydrAMINE 25 MG CAP PO PRN (14:53)
[2019-03-12] MEDS ORDERED: LANOLIN CREAM 5 GM TUBE TOPICAL PRN (14:53)
[2019-03-12] MEDS ORDERED: HYDROCORTISONE 2.5% RECTAL CREAM 30 GM TUBE RECTAL PRN (14:53)
[2019-03-12] MEDS ORDERED: diphenhydrAMINE 50 MG CAP PO PRN (14:53)
[2019-03-12] MEDS ORDERED: diphenhydrAMINE 50 MG/ML 1 ML VIAL IVP PRN ×2 (14:53)
[2019-03-12] MEDS ORDERED: HYDROcodone/APAP 7.5-325MG 1 EACH TAB PO PRN (14:53)
[2019-03-12] MEDS ORDERED: SIMETHICONE 80 MG CHEWABLE PO PRN (14:53)
[2019-03-12] MEDS ORDERED: ACETAMINOPHEN TAB 325 MG TAB PO PRN (14:53)
[2019-03-12] MEDS ORDERED: BENZOCAINE/MENTHOL SPRAY 1 GM/SPRAY AEROSOL TOPICAL PRN (14:53)
--- NOTE | 2019-03-12 14:57 | P.PROBDLV ---
Vaginal Delivery Note - . Vaginal Delivery Note: The patient is a 18-year-old 4 para 10-1 admitted at 39 and one sevenths weeks by good dating parameters. She is admitted in early labor with all signs reassuring. Her has been essentially uncomplicated and group B strep status is negative. On labor and delivery, her contraction pattern begin to space out. She was, however, scheduled for induction the following day and therefore the decision was made to proceed with augmentation of labor at this time. She therefore had Pitocin augmentation started and underwent artificial rupture of membranes demonstrating clear fluid. She made relatively slow progress through the latent phase of labor and had an epidural catheter placed her on the onset of the active phase of labor. She then progressed through the active phase of labor fairly quickly to complete and then pushed over the course of approximately 5 contractions to a normal spontaneous vaginal delivery of a viable 7 lbs. 0 oz. baby boy with Apgars of 8 at 1 minute and 9 at 5 minutes delivered in the right occiput anterior position. There was a nuchal cord 1 which was reduced following delivery of the infant. The placenta was delivered spontaneously, intact, and grossly normal with a grossly normal, centrally inserted three-vessel cord. There were no lacerations of the perineum, vagina, or cervix. Estimated blood loss for the entire case was approximately 150 mL. There were no complications. All sponge, instrument, and needle counts were correct. Both mother and infant are resting comfortably in recovery.
[2019-03-12] MEDS ORDERED: OXYTOCIN 20 UNITS/1000 ML NS 1,000 ML IV SCH (15:00)
[2019-03-12] MEDS: IBUPROFEN 600 MG TAB PO PRN (15:07)
[2019-03-13] MEDS: IBUPROFEN 600 MG TAB PO PRN ×3 (02:04→15:43)
[2019-03-13] MEDS: SENNOSIDES-DOCUSATE SODIUM 1 EACH TAB PO SCH ×2 (05:45→08:10)
--- NOTE | 2019-03-13 08:45 | P.DS ---
Providers Date of admission: 03/11/19 21:37 Expected date of discharge: 03/13/19 Attending physician: Terrence Moore Primary care physician: Stated None - Discharge Diagnosis(es) (1) 39 weeks gestation of Current Visit: Yes Status: Acute (2) Normal spontaneous vaginal delivery Current Visit: Yes Status: Acute Hospital Course: The patient is a 18-year-old 3 para 1011 admitted at 39+ weeks by good dating parameters. She is admitted through triage having made reported cervical change in triage with regular contractions. She had been scheduled for elective induction 1 day in the future. Though her contraction pattern significantly spaced out, the decision was made to proceed with augmentation given her scheduled induction. Her had otherwise been uncomplicated and group B strep status was negative. Pitocin augmentation was started and she underwent artificial rupture of membranes for clear fluid. She had an epidural catheter placed for analgesia and then progressed fairly rapidly to complete where after she pushed to a normal spontaneous vaginal delivery of a viable 7 lbs. 0 oz. baby boy with Apgars of 8 at 1 minute and 9 at 5 minutes. Her course was unremarkable vital signs being stable and her temperature was afebrile throughout. She was deemed stable for discharge on day 1 was discharged home to follow-up in the office in 6 weeks' time routinely. Discharge instructions included calling for any significantly increased bleeding or foul-smelling lochia, significantly increased fever abdominal pain, perineal complaints, breast complaints, or anything else that concerned her. She understood her instructions and agrees to follow up as noted above. Discharge medications included continued vitamins as she has opted to breast- feed. She was otherwise to use [id number] analgesic pain medications as needed. Maternal blood type is A+ and rubella status is immune. Procedures: #1. Pitocin augmentation #2. Artificial rupture of membranes #3. Epidural analgesia #4. Normal spontaneous vaginal delivery Patient Condition at Discharge: Good Plan - Discharge Summary New Discharge Prescriptions: No Action Pnv No.95/Ferrous Fum/Folic AC [ Multivitamin Tablet] 2 tab PO DAILY Discharge Medication List Pnv No.95/Ferrous Fum/Folic AC [ Multivitamin Tablet] 2 tab PO DAILY 01/16/19 [History] Follow up Appointment(s)/Referral(s): Terrence Moore MD [STAFF PHYSICIAN] - 6 Weeks Discharge Disposition: HOME SELF-CARE
[2019-03-13 11:41] VITALS: BP 111/75; PULSE 71; TEMP 98
== END 2019-03-13 16:10 | disposition home or self-care (01) | DRG 807 ==
LOC: FBPOP 19:20 → 4FBP 21:37
PROVIDERS: ADMIT Obstetrics & Gynecology; ATTEND Obstetrics & Gynecology
PROC: 10E0XZZ Delivery of Products of Conception, External Approach (ICD-10-PCS; principal; 2019-03-12)
PROC: 00HU33Z Insertion of Infusion Device into Spinal Canal, Percutaneous Approach (ICD-10-PCS; 2019-03-12)
PROC: 3E0R3BZ Introduction of Anesthetic Agent into Spinal Canal, Percutaneous Approach (ICD-10-PCS; 2019-03-12)
DX: O69.81X0 Labor and delivery complicated by cord around neck, without compression, not applicable or unspecified (principal); Z37.0 Single live birth; Z3A.39 39 weeks gestation of pregnancy; Z87.891 Personal history of nicotine dependence
CPT/HCPCS: 59025; 85025; 86850; 86900; 86901; 99213